=== PATIENT | female | born 1975 | race Caucasian/White ===

== ENCOUNTER 2019-01-25 23:55 | Emergency (ER) | payer SELFPAY ==
[2019-01-26] MEDS ORDERED: SODIUM CHLORIDE 0.9% 500 ML INFUS.BAG IV ONE (00:23)
[2019-01-26] MEDS ORDERED: ONDANSETRON 4 MG/2 ML VIAL IVPUSH ONE (00:23)
[2019-01-26] MEDS ORDERED: FAMOTIDINE 20 MG/50 ML IVPB 20 MG/50 ML MG IVPB ONE (00:23)
--- NOTE | 2019-01-26 00:24 | PDOC ---
History of Present Illness - General Chief Complaint: Pain Stated Complaint: ABDOMINAL PAIN, VOMITING Time Seen by Provider: 01/26/19 00:16 - History of Present Illness Initial Comments: Nan Landaverde is an otherwise healthy 43yo woman who presents with nausea, vomiting, and upper abdominal pain starting at around 5pm this evening. She states that she went out with friends and had "fish and green wine." Since coming home, she has had numerous episodes of retching and vomiting. She denies seeing any blood in the emesis, stating that it is just yellowish liquid. Prior to going out this evening, she was feeling well. She denies any recent illness, fever/chills, travel, or sick contacts. She denies any diarrhea or history of GERD/gastritis but does report that she has had similar episodes with vomiting and pain in the past. Usually they resolve if she drinks fluids, but today she continued to feel very sick. Past History - Past Medical History Allergies/Adverse Reactions: Allergies Allergy/AdvReac Type Severity Reaction Status Date / Time No Known Allergies Allergy Verified 01/26/19 00:26 Home Medications: Ambulatory Orders NK [No Known Home Medication] 01/26/19 Review of Systems - Review of Systems Comments:: General: No fevers, no chills, no weight or appetite change, no malaise HEENT: No changes in vision, no changes in hearing, no congestion, no sore throat CV: No chest pain, no palpitations, no LE edema Pulm: No SOB, no cough, no wheezing GI: No nausea or vomiting, no change in bowel habits, no melena : No frequency, no urgency, no dysuria Musc: No back pain, no joint swelling, no recent injury Skin: No rash, no lesions, no erythema Endo: No excessive thirst, no heat/cold intolerance Heme: No unusual bruising or bleeding, no swollen glands Neuro: No syncope, no numbness/tingling, no focal weakness Vasc: No claudication Psych: No recent change in mood, no SI or HI *Physical Exam - Physical Exam Comments: General: In no acute distress HEENT: PERRL, EOMI, MMM, atraumatic Cards: RRR, no murmur appreciated Pulm: Comfortable on room air, clear to auscultation bilaterally Abd: Soft, nondistended. B/l upper abdominal TTP. No rigidity, no guarding, no peritoneal signs Ext: Atraumatic. No LE edema. ROM intact. Vasc: Extremities WWP. Skin: Normal color, no rashes or lesions Neuro: A&Ox3, CN grossly intact, normal speech, motor/sensory grossly intact and symmetric Psych: Upset, dramatic ED Treatment Course - LABORATORY CBC & Chemistry Diagram: 01/26/19 00:32 01/26/19 00:30 - RADIOLOGY Radiology Studies Ordered: Category Date Time Status ABDOMEN US -LIMITED [US] Stat Ultrasound 01/26/19 00:22 Ordered Medical Decision Making - Medical Decision Making 01/26/19 00:23 Nan Landaverde is an otherwise healthy 43yo woman who presents with nausea, vomiting, and upper abdominal pain this evening that started after going out to dinner w/ friends and drinking "green wine." She denies any symptoms prior to tonight, frequent heartburn, sick contacts, recent travel, diarrhea, lower abdominal pain, or fever/chills. - Most likely gastritis, possibly food poisoning, pancreatitis, cholecystitis. - CBC, chemistry, lipase, amylase, serum preg. Abd US for evaluation of gallbladder, pancreas. - IVF, zofran, famotidine for symptoms 01/26/19 01:42 - Pt endorsed to Dr Gaona that she had 7 glasses of wine this evening. Nausea/ vomiting most likely gastritis and/or intoxication - CBC, lipase, amylase unremarkable. Preg negative - Chemistry not available. Called lab. 01/26/19 03:10 - Chemistry and LFT's unremarkable. - Most likely discharged home when US available - Will PO challenge 01/26/19 04:03 - Ultrasound unremarkable - Able to tolerate drinking water w/o any additional vomiting - Will d/c home with PMD follow up Discussed with Dr Gaona. Ellie Ritter PGY1 *DC/Admit/Observation/Transfer Diagnosis at time of Disposition: Alcoholic gastritis - Discharge Dispostion Disposition: HOME Condition at time of disposition: Stable Decision to Admit order: No - Referrals Referrals: [facility] [Provider Group] - Patient Instructions Printed Discharge Instructions: DI for Alcoholic Gastritis Additional Instructions: Discharge Instructions: You were seen in the ED for nausea and vomiting after drinking alcohol. You felt better with IV fluids, an acid medication, and a nausea medication. Your blood tests and abdominal ultrasound were not concerning. Home Care and Follow Up: - Make sure you drink plenty of fluids over the next few days to stay well hydrated - Take acetaminophen (Tylenol) 650mg every 6-8 hours as needed for headache or pain - You may consider taking Pepcid or Xantac daily for upset stomach. These are available over the counter - Use Mylanta or Maalox to help settle an upset stomach - It is strongly recommended that you do not drink more than 2 drinks at a time - Make an appointment with your primary doctor within the next week if you are not feeling better. You have been referred to the [facility] [place] clinic if you need to establish care. - Seek immediate medical care for continued or worsening symptoms, severe vomiting that prevents you from drinking liquids, if you become dehydrated, or if you have any other medical emergency. Instrucciones de descarga: Usted fue visto en el servicio de urgencias por nuseas y vmitos despus de beber alcohol. Se sinti mejor con los lquidos intravenosos, un medicamento para el cido y un medicamento para las nuseas. Marylu anlisis de ruby y ultrasonido abdominal no steph preocupantes. Atencin domiciliaria y seguimiento: - Asegrese de beber muchos lquidos phyllis los prximos nails para mantenerse cuong hidratado - [place] acetaminofn (Tylenol) 650 mg cada 6-8 horas segn sea necesario para el dolor de brenden o dolor - Puede considerar alpesh Pepcid o Xantac diariamente para el malestar estomacal. Estos estn disponibles en el mostrador - Use Mylanta o Maalox para ayudar a resolver un malestar estomacal - Se recomienda encarecidamente que no tome ms de 2 bebidas a la vez. - Demetrius audrey gurinder con morales mdico de cabecera dentro de la prxima semana si no se siente mejor. Se le reyes remitido a la clnica de medicina de [facility] si necesita establecer atencin. - Busque atencin mdica inmediata para los sntomas continuos o que empeoran, vmitos intensos que le impiden alpesh lquidos, si se deshidrata, o si tiene cualquier otra emergencia mdica. Print Language: S[place] - Post Discharge Activity
[2019-01-26 00:26] VITALS: BP 144/72; PULSE 79; TEMP 97.2; BMI 20.7
--- NOTE | 2019-01-26 00:36 | PDOC ---
Attending Attestation - Resident Resident Name: StoneEllie - ED Attending Attestation I have performed the following: I have examined & evaluated the patient, The case was reviewed & discussed with the resident, I agree w/resident's findings & plan, Exceptions are as noted - HPI HPI: 01/26/19 00:34 43yo F with no significant PMH or PSH who presents to the ED with multiple episodes of vomiting since 5pm today. Pt reports symptoms began after drinking 7 glasses of wine with friends at a restaurant. Reports vomiting was initially the color of what she ate at the restaurant (fish) but now she is just dry heaving. Reports vomiting a/w epigastric pain. States her friends ate the same food, with no similar sxs. Has had similar symptoms in the past after drinking excessively. Prior to sxs was in her USOH, denies fevers, chills, cp, sob, headache, weakness/dizziness, LE edema. No treatments tried. - Physicial Exam PE: 01/26/19 01:33 GENERAL: Awake, alert, and fully oriented, in no acute distress HEAD: No signs of trauma EYES: PERRLA, EOMI, sclera anicteric, conjunctiva clear ENT: Oropharynx clear without exudates. Moist mucosa LUNGS: Breath sounds equal, clear to auscultation bilaterally. No wheezes, and no crackles HEART: Regular rate and rhythm, normal S1 and S2, no murmurs, rubs or gallops ABDOMEN: Soft, nontender, normoactive bowel sounds. Neg murphys sign. No guarding, no rebound. No masses EXTREMITIES: Normal range of motion, no edema. No cords, erythema, or tenderness NEUROLOGICAL: Normal speech, cranial nerves intact, equal strength and sensation b/l SKIN: Warm, Dry, normal turgor, no rashes or lesions noted. - Medical Decision Making 01/26/19 01:38 43yo F presents to the ED with multiple episodes of N/V after drinking 6 glasses of wine Vitals wnl. Exam with comfortable appearing pt (after zofran), with no abd ttp Likely alcoholic gastritis but pancreatitis vs enteritis vs cholecystitis also on the differential Plan for labs, UPT, UA, symptom control, reassess 01/26/19 06:22 Labs wnl US with no acute pathology Pt tolerating PO, drank water, feels much better Likely alcoholic gastritis Pt clinically stable for DC home with her I discussed the physical exam findings, ancillary test results and final diagnoses with the patient. I answered all of the patient's questions. The patient was satisfied with the care received and felt comfortable with the discharge plan and treatment plan. The patient will call their primary care physician within 24 hours to arrange follow-up and will return to the Emergency Department with any new, persistent or worsening symptoms.
[2019-01-26 00:40] LABS: BASO % 0.6 % (0-2.0); EOS % 0.1 % (0-4.5); HEMATOCRIT 38.3 % (32.4-45.2); HEMOGLOBIN 12.6 GM/dL (10.7-15.3); LYMPH % 17.6 % (8-40); MCH 28.4 pg (25.7-33.7); MCHC 32.8 g/dl (32.0-36.0); MEAN CELL VOLUME 86.4 fl (80-96); MEAN PLT VOLUME 9.5 fl (7.5-11.1); MONO % 2.9 % (3.8-10.2); NEUT % 78.8 % (42.8-82.8); PLATELET COUNT 287 K/MM3 (134-434); RBC 4.43 M/mm3 (3.60-5.2); RDW 15.7 % (11.6-15.6); WHITE BLOOD COUNT 8.8 K/mm3 (4.0-10.0)
[2019-01-26 01:07] LABS: AMYLASE 69 U/L (25-115); LIPASE 264 U/L (73-393)
[2019-01-26] MEDS ORDERED: ACETAMINOPHEN 1000 MG/100 ML VIAL (NON FORMULARY) IVPB ONE (01:46)
[2019-01-26] MEDS ORDERED: ACETAMINOPHEN INJECTION 100 ML IVPB ONE (02:02)
[2019-01-26 02:51] LABS: ALBUMIN 4.4 g/dl (3.4-5.0); BILIRUBIN,TOTAL 0.3 mg/dL (0.2-1); CALCIUM 9.5 mg/dL (8.5-10.1); CREATININE 0.8 mg/dL (0.55-1.3); MAGNESIUM 2.1 mg/dL (1.8-2.4); PHOSPHOROUS 1.2 mg/dL (2.5-4.9); POTASSIUM 3.7 mmol/L (3.5-5.1); TOT PROT 8.1 g/dl (6.4-8.2)
[2019-01-26 03:30] LABS: URINE APPEARANCE CLEAR; URINE BILIRUBIN NEGATIVE (NEGATIVE); URINE COLOR YELLOW; URINE GLUCOSE (UA) NEGATIVE (NEGATIVE); URINE KETONE 1+ (NEGATIVE); URINE LEUK ESTERASE NEGATIVE (NEGATIVE); URINE NITRITE NEGATIVE (NEGATIVE); URINE PROTEIN NEGATIVE (NEGATIVE); URINE UROBILINOGEN 0.2 mg/dL (0.2-1.0)
== END 2019-01-26 04:20 | disposition home or self-care (01) ==
LOC: JER 23:55
PROC: 3E033GC Introduction of Other Therapeutic Substance into Peripheral Vein, Percutaneous Approach (ICD-10-PCS; principal; 2019-01-25)
PROC: 3E033NZ Introduction of Analgesics, Hypnotics, Sedatives into Peripheral Vein, Percutaneous Approach (ICD-10-PCS; 2019-01-25)
PROC: 3E033GC Introduction of Other Therapeutic Substance into Peripheral Vein, Percutaneous Approach (ICD-10-PCS; 2019-01-25)
DX: K29.20 Alcoholic gastritis without bleeding (principal)
CPT/HCPCS: 36415; 76705-TC; 80053; 81003; 82150; 83690; 83735; 84100; 84703; 85025; 87086; 99281-25; J0131